=== PATIENT | male | born 1945 | race Caucasian/White ===

== ENCOUNTER 2017-05-21 12:31 | Day surgery (SDC) | payer OTHER, BC ==
[2017-05-21] MEDS ORDERED: BENZOCAINE UNIT DOSE SPRAY HURRICAINE MM ONE (12:35)
[2017-05-21] MEDS ORDERED: ATROPINE SULFATE 1 MG/10 ML SYR IVP ONE (12:35)
[2017-05-21] MEDS ORDERED: fentaNYL 100 MCG/2 ML INJ IVP ONE (12:35)
[2017-05-21] MEDS ORDERED: MIDAZOLAM 2 MG/2 ML VIAL IVP ONE (12:35)
[2017-05-21] MEDS ORDERED: NS 500 ML IV ONE (12:35)
--- NOTE | 2017-05-21 12:51 | CPEKG ---
Heart Rate: 93 RR Interval: 645 QRSD Interval: 92 QT Interval: 348 QTC Interval: 433 QRS [place]: 71 T Wave Holden: 36 EKG Severity - ABNORMAL ECG - EKG Impression: ATRIAL FIBRILLATION EKG Impression: LOW VOLTAGE IN FRONTAL LEADS Electronically Signed By: Wayne Newell 21-May-2017 15:51:23
--- NOTE | 2017-05-21 13:19 | PDANEPAE ---
ANE History of Present Illness 72 year old male w/ PMHx of Annika Montanez presents for ROB / CV. ANE Past Medical History - Cardiovascular History Hx Hypertension: Yes Hx Arrhythmias: Yes Hx Chest Pain: No Hx Coronary Artery / Peripheral Vascular Disease: No Hx CHF / Valvular Disease: No Hx Palpitations: Yes Cardiovascular History Comment: Atrial fibrillation - Pulmonary History Hx COPD: No Hx Asthma/Reactive Airway Disease: No Hx Recent Upper Respiratory Infection: No Hx Oxygen in Use at Home: No Hx Sleep Apnea: Yes - Neurologic History Hx Cerebrovascular Accident: No Hx Seizures: No Hx Dementia: No - Endocrine History Hx Diabetes: No Hypothyroid: No Hyperthyroid: No Obesity: no - Renal History Hx Renal Disorders: No - Liver History Hx Hepatic Disorders: No - Neurological & Psychiatric Hx Hx Neurological and Psychiatric Disorders: No - Cancer History Hx Cancer: No - Congenital Disorder History Hx Congenital Disorders: No - GI History Hx Gastrointestinal Disorders: No - Chronic Pain History Chronic Pain: Yes (Right hip s/p replacement and revision) ANE Review of Systems Review of systems is: negative Review of Systems: - Exercise capacity Exercise capacity: >=4 METS ANE Patient History - Allergies Allergies/Adverse Reactions: No Known Allergies Allergy (Unverified 08/17/11 10:55) - Home Medications Home medications: home medication list seen and reviewed Home Medications: Atorvastatin Calcium [Lipitor] 10 mg PO DAILY 08/17/11 [Last Taken 04/13/16 07: 00] Cholecalciferol (Vitamin D3) [Vitamin D] 1,000 unit PO DAILY 08/17/11 [Last Taken 04/13/16 07:00] Dabigatran Etexilate Mesyl [Pradaxa] 150 mg PO BID 08/17/11 [Last Taken 07:00] Diltiazem HCl [Diltiazem 24Hr ER] 120 mg PO DAILY 08/17/11 [Last Taken 04/13/16 07:00] Irbesartan [Avapro] 150 mg PO DAILY 08/17/11 [Last Taken 04/13/16 07:00] Multivitamin [Daily Multiple Vitamin] 1 each PO DAILY 08/17/11 [Last Taken 04/13 07:00] [place]-3 Fatty Acids/Fish Oil [Fish Oil 1,000 mg Softgel] 1,000 mg PO BID [Last Taken 04/13/16 07:00] - NPO status NPO Status: no food or drink >8 hours - Anes Hx Anes Hx: no prior problems - Smoking Hx Smoking Status: Never smoked Marijuana use: No - Alcohol Use Alcohol Use: Rarely - Family Anes Hx Family Anes Hx: neg - N/A ANE Labs/Vital Signs - Labs Result Diagrams: 05/21/17 13:05 - Vital Signs Vital Signs: reviewed preoperatively; see RN documention for details Height: 173 cm Weight: 63.5 kg ANE Physical Exam - Airway Neck exam: FROM Mallampati Score: Class 2 - Pulmonary Pulmonary: no respiratory distress - Cardiovascular Cardiovascular: regular rate and rhythym - ASA Status ASA Status: III ANE Anesthesia Plan Anesthesia Plan: GA with mask Total IV Anesthesia: Yes
[2017-05-21 13:25] LABS: INR 1.26 (0.83-1.16); PROTIME(PATIENT) 15.8 SEC (12.0-15.0)
[2017-05-21 13:26] LABS: APTT 33.2 SEC (23.0-38.0)
[2017-05-21 13:41] LABS: TROPONIN I < 0.012 ng/mL (0.000-0.034)
[2017-05-21] MEDS ORDERED: PROPOFOL 200 MG/20 ML VIAL ONE (13:43)
[2017-05-21 13:50] LABS: ANION GAP 11 mEq/L (8-16); CALCIUM 9.3 mg/dL (8.5-10.4); CARBON DIOXIDE 24 mEq/l (22-31); CHLORIDE 106 mEq/L (97-110); CREATININE 0.8 mg/dL (0.7-1.3); GLOMERULAR FILTRATION RATE > 60; GLUCOSE 84 mg/dL (70-100); MAGNESIUM 1.8 mg/dL (1.6-2.3); POTASSIUM 4.2 mEq/L (3.5-5.2); SODIUM 141 mEq/L (134-144)
[2017-05-21] MEDS ORDERED: PROPOFOL/EMULSION 500 MG/50 ML BOTTLE IV ONE (14:07)
--- NOTE | 2017-05-21 14:23 | PDHPUP ---
History & Physical Update H&P update statement: This history and physical update is based on an assessment of the patient which was completed after admission or registration (within 24 hours), but prior to the surgery/procedure. H&P update: H&P reviewed & patient examined, no change in patient's condition since H&P completed
--- NOTE | 2017-05-21 14:24 | PDPROPOC ---
Sedation Plan of Care Sedation Plan of Care: vital signs stable, mental status noted, patient educated of risks, benefits, alternatives, patient can tolerate sedation ASA Classification: ASA 2 Planned drugs: other Mallampati Score: Class 2 Mallampati Reference Image: Patient passed 3-3-2 rule?: Yes
--- NOTE | 2017-05-21 14:31 | CPEKG ---
Heart Rate: 65 RR Interval: 923 P-R Interval: 276 QRSD Interval: 88 QT Interval: 408 QTC Interval: 425 P Pitcher: -29 QRS Pitcher: 43 T Wave Pitcher: 39 EKG Severity - ABNORMAL ECG - EKG Impression: SINUS RHYTHM EKG Impression: MULTIPLE ATRIAL PREMATURE COMPLEXES EKG Impression: FIRST DEGREE AV BLOCK EKG Impression: LOW VOLTAGE IN FRONTAL LEADS Electronically Signed By: Wayne Newell 21-May-2017 15:51:01
--- NOTE | 2017-05-21 17:36 | POSTANESTH ---
Post Anesthetic Evaluation Cardiovascular Status: Normal, Stable, Similar to Pre-Op Cond Respiratory Status: Normal, Stable, Similar to Pre-op Cond. Level of Consciousness/Mental Status: Can Participate in Eval, Alert and Oriented Pain Control: Adequate, Prn Tx Ordered Nausea/Vomiting Control: Adequate, Prn Tx Ordered Complications Possibly Related to Anesthesia: None Noted
--- NOTE | 2017-05-21 21:49 | CPIP ---
[f rep st] INVASIVE CARDIAC PROCEDURE DATE OF PROCEDURE: 05/21/2017 PROCEDURE: Transesophageal echocardiogram cardioversion. INDICATION: Atrial fibrillation. CONSENT: Signed and in front of chart. ANTICOAGULATION: Patient has been anticoagulated with Eliquis. He did have to hold a few doses for a spinal injection. Therefore, ROB was performed. Please see ROB report for details. PROCEDURE IN DETAIL: ROB demonstrated no evidence of thrombus in the left atrium or the left atrial appendage. Specifics: Pads were placed in anterior-posterior position. 150 joules synchronized deli kemar x1 with return to normal sinus rhythm. COMPLICATIONS: None. CONCLUSIONS: Status post successful direct current cardioversion. /[id number]/MODL
== END 2017-05-21 15:52 | disposition home or self-care (01) ==
LOC: FCATH 12:31
PROVIDERS: ATTEND Internal Medicine Cardiovascular Disease
PROC: 5A2204Z Restoration of Cardiac Rhythm, Single (ICD-10-PCS; principal; 2017-05-21)
DX: I48.91 Unspecified atrial fibrillation (principal)
CPT/HCPCS: J0461; J2704

== ENCOUNTER 2017-09-01 13:07 | Day surgery (SDC) | payer OTHER, BC ==
[2017-09-01] MEDS ORDERED: NS 500 ML IV ONE (13:13)
--- NOTE | 2017-09-01 13:46 | CPEKG ---
Heart Rate: 98 RR Interval: 612 QRSD Interval: 96 QT Interval: 360 QTC Interval: 460 QRS [place]: 74 T Wave [place]: 44 EKG Severity - ABNORMAL ECG - EKG Impression: ATRIAL FIBRILLATION, V-RATE 77-129 Electronically Signed By: James Cerda 01-Sep-2017 17:27:46
[2017-09-01 13:47] LABS: INR 1.11 (0.83-1.16); PROTIME(PATIENT) 14.5 SEC (12.0-15.0)
--- NOTE | 2017-09-01 14:14 | PDANEPAE ---
ANE History of Present Illness A-fib ANE Past Medical History - Cardiovascular History Hx Hypertension: Yes Hx Arrhythmias: Yes Hx Chest Pain: No Hx Coronary Artery / Peripheral Vascular Disease: No Hx CHF / Valvular Disease: No Hx Palpitations: Yes Cardiovascular History Comment: Atrial fibrillation - Pulmonary History Hx COPD: No Hx Asthma/Reactive Airway Disease: No Hx Recent Upper Respiratory Infection: No Hx Oxygen in Use at Home: No Hx Sleep Apnea: Yes - Neurologic History Hx Cerebrovascular Accident: No Hx Seizures: No Hx Dementia: No - Endocrine History Hx Diabetes: No - Renal History Hx Renal Disorders: No - Liver History Hx Hepatic Disorders: No - Neurological & Psychiatric Hx Hx Neurological and Psychiatric Disorders: No - Cancer History Hx Cancer: No - Congenital Disorder History Hx Congenital Disorders: No - GI History Hx Gastrointestinal Disorders: No - Chronic Pain History Chronic Pain: Yes (Right hip s/p replacement and revision) ANE Review of Systems Review of Systems: ANE Patient History - Allergies Allergies/Adverse Reactions: No Known Allergies Allergy (Unverified 08/17/11 10:55) - Home Medications Home Medications: Atorvastatin Calcium [Lipitor 10 mg (*)] 10 mg PO DAILY 08/17/11 [Last Taken 09/24 07:00] Cholecalciferol (Vitamin D3) [Vitamin D] 1,000 unit PO DAILY 08/17/11 [Last Taken 04/13/16 07:00] Diltiazem HCl [Diltiazem 24Hr ER] 120 mg PO DAILY 08/17/11 [Last Taken 04/13/16 07:00] Irbesartan [Avapro 150 mg (*)] 150 mg PO DAILY 08/17/11 [Last Taken 04/13/16 07: 00] Multivitamin [Daily Multiple Vitamin] 1 each PO DAILY 08/17/11 [Last Taken 04/13 07:00] [place]-3 Fatty Acids/Fish Oil [Fish Oil 1,000 mg Softgel] 1,000 mg PO BID [Last Taken 04/13/16 07:00] Eliquis 5 mg PO BID 05/21/17 [Last Taken 05/21/17 07:00] Propafenone HCl 05/21/17 [Last Taken Unknown] - Anes Hx Anes Hx: no prior problems - Smoking Hx Smoking Status: Never smoked ANE Labs/Vital Signs - Labs Result Diagrams: 02/21/18 13:30 ANE Physical Exam - Airway Neck exam: FROM Mallampati Score: Class 2 Mouth exam: normal dental/mouth exam - Pulmonary Pulmonary: no respiratory distress - Cardiovascular Cardiovascular: regular rate and rhythym - ASA Status ASA Status: II ANE Anesthesia Plan Anesthesia Plan: GA with mask (Brief IV GA)
[2017-09-01] MEDS ORDERED: PROPOFOL 200 MG/20 ML VIAL ONE (14:18)
[2017-09-01] MEDS ORDERED: LIDOCAINE 2% 5 ML SDV ONE (14:19)
--- NOTE | 2017-09-01 14:50 | CPEKG ---
Heart Rate: 63 RR Interval: 952 P-R Interval: 244 QRSD Interval: 82 QT Interval: 408 QTC Interval: 418 P [place]: 11 QRS [place]: 50 T Wave [place]: 42 EKG Severity - ABNORMAL ECG - EKG Impression: SINUS RHYTHM EKG Impression: FIRST DEGREE AV BLOCK Electronically Signed By: James Cerda 01-Sep-2017 17:27:39
--- NOTE | 2017-09-01 14:55 | CPIP ---
[f rep st] INVASIVE CARDIAC PROCEDURE DATE OF PROCEDURE: 09/01/2017 PRIMARY HOME WEATHERIZING WORKER: Dr. Parth Nur. PROCEDURE: Direct current cardioversion. INDICATIONS: Symptomatic atrial fibrillation. COMPLICATIONS: None. DESCRIPTION OF PROCEDURE: NPO status was confirmed, time-out performed, informed consent obtained, a nd time-out was performed. Anesthesia was provided by Dr. Houser. The patient has been taking Eliquis as directed twice daily without fail for greater than 4 weeks. Therefore, we did not perfor m a ROB. The patient received a single 200 joule synchronized shock which converted him from atrial fibrillati on to normal sinus rhythm. A 12-lead EKG is pending. CONCLUSION: Successful cardioversion. 1. Discharge home on his usual propafenone, beta jorge, Eliquis. 2. Follow up with Dr. Chucky Mejia for further management of atrial fibrillation. /[id number]/MODL
== END 2017-09-01 15:47 | disposition home or self-care (01) ==
LOC: FCATH 13:07
PROVIDERS: ATTEND Internal Medicine Cardiovascular Disease
PROC: 5A2204Z Restoration of Cardiac Rhythm, Single (ICD-10-PCS; principal; 2017-09-01)
DX: I48.0 Paroxysmal atrial fibrillation (principal); I48.92 Unspecified atrial flutter; I25.10 Atherosclerotic heart disease of native coronary artery without angina pectoris; I10 Essential (primary) hypertension; E78.5 Hyperlipidemia, unspecified; G47.33 Obstructive sleep apnea (adult) (pediatric); Z79.01 Long term (current) use of anticoagulants; Z86.711 Personal history of pulmonary embolism; Z86.718 Personal history of other venous thrombosis and embolism
CPT/HCPCS: J2704

== ENCOUNTER → 2018-04-04 | Outpatient (CLI) | payer OTHER, BC | LOC: BHFA 13:00 | PROVIDERS: ATTEND Internal Medicine Cardiovascular Disease | DX: I48.91 Unspecified atrial fibrillation (principal); Z79.899 Other long term (current) drug therapy ==

== ENCOUNTER 2018-08-05 12:15 | Day surgery (SDC) | payer OTHER ==
[2018-08-05] MEDS ORDERED: NS 500 ML IV ONE (12:17)
[2018-08-05] MEDS ORDERED: MIDAZOLAM 2 MG/2 ML VIAL IVP ONE (12:17)
[2018-08-05] MEDS ORDERED: BENZOCAINE UNIT DOSE SPRAY HURRICAINE MM ONE (12:17)
[2018-08-05] MEDS ORDERED: ATROPINE SULFATE 1 MG/10 ML SYR IVP ONE (12:17)
[2018-08-05] MEDS ORDERED: fentaNYL 100 MCG/2 ML INJ IVP ONE (12:17)
[2018-08-05 12:56] LABS: INR 1.19 (0.83-1.16); PROTIME(PATIENT) 15.3 SEC (12.0-15.0)
--- NOTE | 2018-08-05 13:33 | PDANEPAE ---
ANE History of Present Illness afib, here for ROB and cardioversion in attempt to regain NSR ANE Past Medical History - Cardiovascular History Hx Hypertension: Yes Hx Arrhythmias: Yes Hx Chest Pain: No Hx Coronary Artery / Peripheral Vascular Disease: No Hx CHF / Valvular Disease: No Hx Palpitations: Yes Cardiovascular History Comment: Atrial fibrillation - Pulmonary History Hx COPD: No Hx Asthma/Reactive Airway Disease: No Hx Recent Upper Respiratory Infection: No Hx Oxygen in Use at Home: No Hx Sleep Apnea: Yes - Neurologic History Hx Cerebrovascular Accident: No Hx Seizures: No Hx Dementia: No - Endocrine History Hx Diabetes: No - Renal History Hx Renal Disorders: No - Liver History Hx Hepatic Disorders: No - Neurological & Psychiatric Hx Hx Neurological and Psychiatric Disorders: No - Cancer History Hx Cancer: No - Congenital Disorder History Hx Congenital Disorders: No - GI History Hx Gastrointestinal Disorders: No - Chronic Pain History Chronic Pain: Yes (Right hip s/p replacement and revision) ANE Review of Systems Review of Systems: ANE Patient History - Allergies Allergies/Adverse Reactions: No Known Allergies Allergy (Unverified 08/17/11 10:55) - Home Medications Home Medications: Atorvastatin Calcium [Lipitor 10 mg (*)] 10 mg PO DAILY 08/17/11 [Last Taken 06:00] Cholecalciferol (Vitamin D3) [Vitamin D] 1,000 unit PO DAILY 08/17/11 [Last Taken 04/13/16 07:00] Diltiazem HCl [Diltiazem 24Hr ER] 120 mg PO DAILY 08/17/11 [Last Taken 08/05/18 06:00] Irbesartan [Avapro 150 mg (*)] 150 mg PO DAILY 08/17/11 [Last Taken 08/05/18 06: 00] Multivitamin [Daily Multiple Vitamin] 1 each PO DAILY 08/17/11 [Last Taken 04/13 07:00] [place]-3 Fatty Acids/Fish Oil [Fish Oil 1,000 mg Softgel] 1,000 mg PO BID [Last Taken 04/13/16 07:00] Eliquis 5 mg PO BID 05/21/17 [Last Taken 08/05/18 06:00] Propafenone HCl 325 mg PO DAILY 05/21/17 [Last Taken 08/05/18 06:00] Co Q-10 08/05/18 [Last Taken Unknown] ZOLPIDEM TARTRATE 10 mg PO PRN 08/05/18 [Last Taken Unknown] - Smoking Hx Smoking Status: Never smoked ANE Labs/Vital Signs - Labs Result Diagrams: 08/05/18 12:30 - Vital Signs Height: 173 cm Weight: 63.5 kg ANE Physical Exam - Airway Neck exam: FROM Mallampati Score: Class 1 Mouth exam: normal dental/mouth exam - Pulmonary Pulmonary: no respiratory distress, no rales or rhonchi - Cardiovascular Cardiovascular: irregularly irregular - ASA Status ASA Status: III ANE Anesthesia Plan Anesthesia Plan: GA with mask Total IV Anesthesia: Yes
[2018-08-05] MEDS ORDERED: PROPOFOL 200 MG/20 ML VIAL ONE ×2 (13:46→13:53)
--- NOTE | 2018-08-05 13:57 | PDTEE1 ---
ROB Cardioversion Procedure Procedure: electrical cardioversion Indications: atrial fibrillation Consent: signed and in chart Anticoagulation: eliquis Procedural Details: Pads were placed in anterior-posterior position. ROB probe was advanced and standard images obtained. There is no evidence of left atrial or left atrial appendage thrombus. Synchronized cardioversion attempt #1: 200J Results: normal sinus rhythm Conclusions: successful ROB cardioversion
--- NOTE | 2018-08-05 14:03 | POSTANESTH ---
Post Anesthetic Evaluation Cardiovascular Status: Normal, Stable Respiratory Status: Normal, Stable Level of Consciousness/Mental Status: Can Participate in Eval, Alert and Oriented Pain Control: Adequate, Prn Tx Ordered Nausea/Vomiting Control: Adequate, Prn Tx Ordered Complications Possibly Related to Anesthesia: None Noted
--- NOTE | 2018-08-05 16:25 | ECHO ---
[email or web address] [place] [id number] Main: [phone] Fax: Transesophageal Echocardiography Name: JUDY CARABALLO MR#: [id number] Study Date: 08/05/2018 Study Time: 01:20 PM Date of : 1945 Age: 73 year(s) Height: ( ) Weight: ( ) BSA: Gender: Male Examination: ROB Indication: Pre Cardioversion Image Quality: Contrast: Requested by: Cullen Nieto Heart Rate: Rhythm: BP: / Procedure Staff Ic Engineer: Tyesha Meadows RDCS Reading Physician: Cullen Nieto MD Requesting Provider: ROB Exam Details Conclusions: The patient was in atrial fibrillation at the time of the study. Left atrial appendage was well visualized and free of thrombus. The patient underwent cardioversion following the procedure. Measurements: Chambers Valvular Assessment AV/MV Valvular Assessment TV/PV Normal Normal Normal Name Value Range Name Value Range Name Value Range Additional Measurements: Findings: Left Atrial Appendage: The left atrial appendage is multilobular. Good color flow doppler in the left atrial appendage. Normal PW-Doppler flow pattern. No thrombus in left appendage. l1n (No Signature Object) Patient: JUDY CARABALLO Study Date: 08/05/2018 Page 1 of 1 01:20 PM [id number]
--- NOTE | 2018-08-05 20:55 | CPEKG ---
Test Reason : OPEN Blood Pressure : / mmHG Vent. Rate : 116 BPM Atrial Rate : 208 BPM P-R Int : 130 ms QRS Dur : 094 ms QT Int : 333 ms P-R-T Axes : 000 082 037 degrees QTc Int : 463 ms Atrial fibrillation Borderline right axis deviation Compared with 09/01/2017 at 14:48, AF now present Confirmed by Kalyani Ruffin ([id number]) on 08/05/2018 8:55:24 PM Referred By: Cullen Nieto Confirmed By:Kalyani Ruffin
--- NOTE | 2018-08-05 20:56 | CPEKG ---
Test Reason : OPEN Blood Pressure : / mmHG Vent. Rate : 076 BPM Atrial Rate : 077 BPM P-R Int : 272 ms QRS Dur : 092 ms QT Int : 378 ms P-R-T Axes : -29 051 040 degrees QTc Int : 426 ms Sinus rhythm Prolonged MI interval Low voltage, extremity leads Compared with 08/05/2018 at 12:26 NSR now present Confirmed by Kalyani Ruffin ([id number]) on 08/05/2018 8:56:36 PM Referred By: Cullen Nieto Confirmed By:Kalyani Ruffin
== END 2018-08-05 15:00 | disposition home or self-care (01) ==
LOC: FCATH 12:15
PROVIDERS: ATTEND Internal Medicine Cardiovascular Disease
DX: I48.91 Unspecified atrial fibrillation (principal); I10 Essential (primary) hypertension; E78.5 Hyperlipidemia, unspecified; G47.33 Obstructive sleep apnea (adult) (pediatric); I25.10 Atherosclerotic heart disease of native coronary artery without angina pectoris; Z79.01 Long term (current) use of anticoagulants; Z86.718 Personal history of other venous thrombosis and embolism; Z86.711 Personal history of pulmonary embolism; Z96.641 Presence of right artificial hip joint
CPT/HCPCS: J2704

== ENCOUNTER 2018-10-05 11:04 | Observation (INO) | payer OTHER ==
[2018-10-05] MEDS ORDERED: NS 1,000 ML IV ONE (11:09)
--- NOTE | 2018-10-05 11:23 | PDGENHP ---
History & Physical Chief Complaint: afib History of Present Illness: symptomatic pAF, presenting for catheter ablation Relevant Physical Exam: A+Ox4, irr irr/mildly tachy, no MRG, CTAB, no focal neuro deficits. Cardiorespiratory Assessment: pAF -> catheter ablation
[2018-10-05] MEDS ORDERED: HEPARIN/DEXTROSE 25,000 UNIT/500 ML BAG ONE (11:35)
[2018-10-05] MEDS ORDERED: LIDOCAINE 1% 300 MG/30 ML SDV ONE (11:35)
[2018-10-05] MEDS ORDERED: BUPIVACAINE 0.75% 10 ML SDV ONE (11:36)
[2018-10-05] MEDS ORDERED: HEPARIN 10,000 UNIT/10 ML MDV (1,000 UNIT/ML) ONE (11:36)
[2018-10-05] MEDS ORDERED: IOPAMIDOL (ISOVUE-300) 100 ML BTL ONE (11:36)
[2018-10-05 11:52] LABS: PLATELET COUNT 198 10^3/uL (150-400)
[2018-10-05 12:00] LABS: INR 0.97 (0.83-1.16); PROTIME(PATIENT) 12.5 SEC (12.0-15.0)
[2018-10-05] MEDS ORDERED: PROPOFOL 200 MG/20 ML VIAL ONE ×2 (12:47→14:29)
[2018-10-05] MEDS ORDERED: fentaNYL 100 MCG/2 ML INJ ONE ×5 (12:47→15:51)
[2018-10-05] MEDS ORDERED: PROTAMINE SULFATE 50 MG/5 ML VIAL IVP ONE (16:08)
[2018-10-05] MEDS ORDERED: ACETAMINOPHEN 325 MG TAB PO PRN (16:33)
[2018-10-05] MEDS ORDERED: PROMETHAZINE HCL 25 MG/ML INJ IVP PRN (16:47)
[2018-10-05] MEDS ORDERED: fentaNYL 100 MCG/2 ML INJ IVP PRN (16:47)
[2018-10-05] MEDS ORDERED: ONDANSETRON 4 MG/2 ML VIAL IVP PRN (16:47)
[2018-10-05] MEDS ORDERED: NALOXONE HCL 0.4 MG/ML INJ IVP PRN (16:47)
--- NOTE | 2018-10-05 16:48 | POSTANESTH ---
Post Anesthetic Evaluation Cardiovascular Status: Normal, Stable Respiratory Status: Normal, Stable Level of Consciousness/Mental Status: Can Participate in Eval Pain Control: Adequate, Prn Tx Ordered Nausea/Vomiting Control: Adequate, Prn Tx Ordered Complications Possibly Related to Anesthesia: None Noted
--- NOTE | 2018-10-05 16:49 | EPPROC ---
Electrophysiology Procedure Note: Date: 10/06/2018 Decorating Equipment Setter: Christopher Delatorre MD Procedures: Comprehensive EP study/catheter ablation of atrial fibrillation 49629 Intracardiac ECHO 95347 3D electroanatomic mapping 28837 Transesophageal echocardiography [id number] Indications: 73-year-old male with symptomatic paroxysmal atrial fibrillation, refractory to treatment with propafenone. Techniques: Following informed consent, the patient was brought to the EP lab in a fasting nonsedated state, in atrial fibrillation rhythm. General anesthesia was provided by the anesthesiology service. Preprocedure transesophageal echocardiogram confirmed the absence of left atrial appendage thrombus; see full report for details. He a left radial arterial line was inserted, and an esophageal temperature probe was inserted. Bilateral groins were prepped and draped in usual sterile fashion. Under ultrasound guidance, vascular access was obtained in the right femoral vein x3, with placement of 2 8 [place] short sheaths, and 1 SL 0 long sheath, which was later exchanged for the FlexCath transseptal sheath. Weight based heparin bolus and drip was administered, targeting ACT 300-350 seconds. A Sound Star ice catheter was inserted, and advanced to right atrium. A Carto sound map was created of the CS ostium, left atrial appendage, pulmonary veins ( which showed normal anatomic relationship), and esophagus. A decapolar catheter was inserted, and advanced to the coronary sinus. A [place] transseptal needle was inserted in the SL 0 sheath, and the system was positioned at the anterior/inferior aspect of the fossa ovalis, under ice guidance. The fossa was crossed, and the sheath was positioned in the mid LA. A PentaRay multipolar catheter was inserted, and used to create a Carto anatomic map of the left atrium, left atrial appendage, pulmonary veins. The PentaRay was removed, and the SL 0 was exchanged over a wire for the FlexCath transseptal sheath. An [place] front Advance cryo balloon catheter was prepped in usual fashion over an achieve circular mapping catheter. The system was used to engage the LSPV/LIPV/RIPV/RSPV. Engagement was guided by Carto and ice , and venous occlusion was confirmed using color Doppler by ice, and catheter tip pressure waveforms. During RIPV/RSPV ablation, right phrenic nerve pacing was performed using a decapolar catheter, with monitoring of right phrenic nerve activity by manual palpation and ice. Following cryoablation of all 4 pulmonary veins, due to ongoing atrial fibrillation rhythm, the patient was cardioverted to atrial paced rhythm (via the CS catheter), using a single 200 joule biphasic R-wave synchronized shock. The cryo balloon catheter was removed , and the PentaRay was reinserted. A substrate map of the LA, LA, PVs was repeated. Entrance and exit block was confirmed in all 4 pulmonary veins via local activation mapping, and pacing from within each vein. All equipment was then withdrawn from the left atrium. At the completion of the procedure, ice survey showed no pericardial effusion; there was normal biventricular systolic function. All catheters were removed. A temporary hemostasis suture was applied to the right groin access site, and sheaths were removed; manual pressure was held until hemostasis. The patient tolerated the procedure well. EBL: 50 cc Complications: None Plan: Bedrest 6 hr postprocedure Resume Eliquis 5 mg twice daily at the completion of bedrest Pantoprazole and colchicine for 2 weeks post ablation Resume propafenone for 3 months post ablation Groin precautions 10 days post ablation Echo in a.m.
--- NOTE | 2018-10-05 18:10 | ECHO ---
[email or web address] [place] [id number] Main: [phone] Echocardiography Examination Transesophageal Name: JUDY CARABALLO MR#: [id number] Study Date: 10/05/2018 Study Time: 12:59 PM Date of : 1945 Age: 73 year(s) Height: ( ) Weight: ( ) BSA: Gender: Male Examination: ROB Contrast: I.V. dose of agitated saline Image Quality: Adequate Rhythm: Heart Rate: BP: / Indication: pre-ablation Procedure Staff Referring Physician: Manufacturing Job Titles: Ginette Edwards [facility] Reading Physician: Brent Delatorre MD Requesting Provider: Ordering Physician: Brent Delatorre MD Indication: pre-ablation Acute complication: None Findings Left Ventricle: Left ventricle is normal in size. Normal global systolic left ventricular function. Left Atrium Appendage: The left atrial appendage function is mildly reduced (mildly reduced emptying velocity). Moderate color flow doppler in the left atrial appendage. No mass is present. IAS: An agitated saline study was performed and was negative for intracardiac shunting. No evidence of a patent foramen ovale. Mitral Valve: Mitral valve appears structurally normal. No mitral regurgitation. Aortic Valve: The aortic valve is structurally normal and trileaflet. No aortic valve regurgitation. Tricuspid Valve: Tricuspid valve leaflets are structurally normal. Trivial tricuspid regurgitation. Pericardium: No pericardial effusion. Exam Details Procedure Ordered: ROB Procedure Status: Routine study Image Quality: Adequate Patient: JUDY CARABALLO Study Date: 10/05/2018 Page 1 of 2 12:59 PM Consent: Risks, alternatives of procedure explained to patient, informed consent obtained Probe Insertion: Attending fish hatchery worker Contrast: I.V. dose of agitated saline Facility Location: Cardiac Echo 1 (No Signature Object) Patient: JUDY CARABALLO Study Date: 10/05/2018 Page 2 of 2 12:59 PM [id number]
[2018-10-05] MEDS: OXYCODONE/APAP 5/325 TAB PO PRN ×2 (18:59→23:31)
[2018-10-05] MEDS: COLCHICINE 0.6 MG CAP/TAB PO SCH (22:13)
[2018-10-05] MEDS: PROPAFENONE HCL SR 325 MG CAP PO SCH (22:14)
[2018-10-05] MEDS: APIXABAN 5 MG TAB PO SCH (22:14)
[2018-10-06 05:41] LABS: PLATELET COUNT 161 10^3/uL (150-400)
[2018-10-06 05:57] LABS: CREATINE KINASE 199 IU/L (0-224)
[2018-10-06] MEDS: APIXABAN 5 MG TAB PO SCH (08:25)
[2018-10-06] MEDS: PROPAFENONE HCL SR 325 MG CAP PO SCH (08:27)
[2018-10-06] MEDS: PANTOPRAZOLE SODIUM 40 MG TAB PO SCH ×2 (08:34→11:15)
[2018-10-06] MEDS: COLCHICINE 0.6 MG CAP/TAB PO SCH ×2 (08:34→11:09)
[2018-10-06] MEDS ORDERED: DILTIAZEM CD 120 MG CAP PO SCH (09:00)
[2018-10-06] MEDS ORDERED: ATORVASTATIN CALCIUM 10 MG TAB PO SCH (09:00)
[2018-10-06] MEDS ORDERED: IRBESARTAN 150 MG TAB PO SCH (09:00)
[2018-10-06 10:11] VITALS: BP 122/70
--- NOTE | 2018-10-06 11:20 | CPEKG ---
Test Reason : OPEN Blood Pressure : / mmHG Vent. Rate : 135 BPM Atrial Rate : 136 BPM P-R Int : 100 ms QRS Dur : 082 ms QT Int : 298 ms P-R-T Axes : 000 066 055 degrees QTc Int : 447 ms Atrial fibrillation Low voltage, extremity leads Atrial fibrillation has replaced normal sinus rhythm noted on prior Confirmed by Mason Echavarria ([id number]) on 10/06/2018 11:19:50 AM Referred By: Brent Delatorre Confirmed By:Mason Echavarria
--- NOTE | 2018-10-06 11:20 | ECHO ---
[email or web address] [address] Main: [phone] Echocardiography Examination Transthoracic Name: JUDY CARABALLO MR#: [id number] Study Date: 10/06/2018 Study Time: 07:25 AM Date of : 1945 Age: 73 year(s) Height: 172.7 cm (68 in.) Weight: 63.5 kg (140 lb.) BSA: 1.76 m2 Gender: Male Examination: Echo Contrast: Image Quality: Adequate Rhythm: Heart Rate: BP: 133 mmHg/113 mmHg Indication: F/U Post EP Study Procedure Staff Referring Physician: Work Force Advisor: Tyesha Meadows [facility] Reading Physician: Akbar Hall MD Requesting Provider: Ordering Physician: Brent Delatorre MD Indication: F/U Post EP Study Measurements Chambers AV/MV Label Value Normal Value Label Value Normal Value IVSd, 2D 1.5 cm (0.6cm - 1.1cm) AV PGmax 7 mmHg LVDd, 2D 4 cm (4.2cm - 5.9cm) AV PGmean 5 mmHg LVDs, 2D 2.5 cm (2.1cm - 4cm) AV Vmax 1.36 m/s LVEF, 2D 68 % (54% - 74%) MV A Vmax 0.72 m/s LVEF, BP 63 % (55% - 70%) MV DT 243 ms LVOT PGmean 5 mmHg MV E' lateral 0.11 m/s LVOT Vmean 1.04 m/s MV E' mean 0.08 m/s LVPWd, 2D 1.3 cm (0.6cm - 1cm) MV E' septal 0.06 m/s RVDd, 2D 3.5 cm (1.9cm - 3.8cm) MV E Vmax 0.88 m/s LA Volume, BP 80 ml (18ml - 58ml) MV E/A 1.22 LADs, 2D 3.7 cm (3cm - 4cm) MV E/E' lateral 8.2 LAESV index, BP 45.5 ml/m2 MV E/E' mean 10.35 Additional Vessels MV E/E' septal 14.1 (0.45 - 1.25) Label Value Normal Value MV PHT 0.07 s AoAsc 3.6 cm MV PHT 67 ms AoRoot, 2D 3.5 cm (1.4cm - 2.6cm) MVA PHT 3.3 cm2 IVC 1.1 cm (1.2cm - 2.3cm) TV/PV Label Value Normal Value RA Pressure 5 mmHg Patient: JUDY CARABALLO Study Date: 10/06/2018 Page 1 of 2 07:25 AM RVSP 44 mmHg TR Pmax 39 mmHg TR Vmax 3.14 m/s PV PGmax 3 mmHg PV Vmax, Caliper 0.88 m/s (0.6m/s - 0.9m/s) Conclusions Overall Conclusions: No pericardial effusion. Ejection fraction 63%. Mild mitral regurgitation. Mild aortic regurgitation. Mild tricuspid regurgitation with right ventricular systolic pressure estimate of 44 mm of mercury. Ascending aorta measures 3.6 cm. Findings Left Ventricle: Normal global systolic left ventricular function. The ejection fraction, measured by Simpsons method, is 63 %. There is moderate concentric left ventricular hypertrophy. There are no regional wall motion abnormalities. Grade II Diastolic Dysfunction. Right Ventricle: Normal size right ventricle. Right ventricular systolic function is normal. Left Atrium: The left atrium is moderately dilated. Mitral Valve: Mitral valve appears structurally normal. Mild mitral regurgitation. No mitral valve stenosis. Aortic Valve: Aortic leaflets are structurally normal. Mild aortic regurgitation is present. There is no aortic stenosis. Tricuspid Valve: Tricuspid valve leaflets are structurally normal. Mild tricuspid regurgitation. No tricuspid valve stenosis. Right Ventricular systolic pressure is measured at 44 mmHg. Pulmonary artery pressure is mildly increased. Pulmonic Valve: Pulmonic leaflets are structurally normal. Mild pulmonic valve regurgitation is present. Aorta: The aortic root size in 2D measures 3.5 cm. The ascending aorta measures 3.6 cm. Aorta Measurements AoRoot, 2D is 3.5 cm. IVC: The inferior vena cava is normal in size. Exam Details Procedure Ordered: Echo Procedure Status: Routine study Image Quality: Adequate Facility Location: Cardiac Echo 1 (No Signature Object) Patient: JUDY CARABALLO Study Date: 10/06/2018 Page 2 of 2 07:25 AM [id number]
--- NOTE | 2018-10-06 11:22 | ASMTDCNOTE ---
Case Management Discharge Discharge Order Complete? Answers: Yes Patient to Obtain Answers: via Family Medications Transportation Arranged Answers: Family/Friends Discharge Comments Notes: Pt is a 73 yo M in with Afib Ablation. Pt is being discharged independently. No CM needs identified. Family to transport. Discussed plan with RN. Date Signed: 10/06/2018 11:22 AM Electronically Signed By:CHERIE Dawson
--- NOTE | 2018-10-06 11:25 | ASDISCHSUM ---
Discharge Information Plan Status:Home with No Needs Medically Cleared to Leave:10/06/2018 Discharge Date:10/06/2018 CM D/C Disposition:Home, Routine, Self-Care ADT D/C Disposition:Home, Routine, Self-Care Projected Discharge Date:10/06/2018 Transportation at D/C:Family Discharge Delay Reason: Follow-Up Date:10/06/2018 Discharge Slot: Final Diagnosis: Placement Information Patient Contact Information Contact Name:GENNARO Relationship: Address:[address] City:[facility] Phone: [facility]/Zip Code:[place] [address] Email: Financial Information Financial Class:Medicare Advantage Plans Primary Plan Desc:[employer] MEDICARE ADV Primary Plan Number:[id number] Secondary Plan Desc: Secondary Plan Number: Assessment Information LACE LACE Length of stay for Answers: Less than 1 day current admission Acuity / Level of Answers: No Care: Did the patient have an inpatient admission? Comorbidities - select Answers: Opioid dependence all that apply / Chronic pain Other Notes: AFib; PE # of Emergency department Answers: 0 visits in the last 6 months Score: 5 Date Signed: 10/06/2018 11:24 AM Electronically Signed By:CHERIE Dawson Case Management Discharge Plan Note Case Management Discharge Discharge Order Complete? Answers: Yes Patient to Obtain Answers: via Family Medications Transportation Arranged Answers: Family/Friends Discharge Comments Notes: Pt is a 73 yo M in with Afib Ablation. Pt is being discharged independently. No CM needs identified. Family to transport. Discussed plan with RN. Date Signed: 10/06/2018 11:22 AM Electronically Signed By:CHEREI Dawson Intervention Information
--- NOTE | 2018-10-06 11:36 | CPEKG ---
Test Reason : OPEN Blood Pressure : / mmHG Vent. Rate : 078 BPM Atrial Rate : 077 BPM P-R Int : 223 ms QRS Dur : 086 ms QT Int : 362 ms P-R-T Axes : 015 050 044 degrees QTc Int : 413 ms Sinus arrhythmia Prolonged SD interval Sinus rhythm has replaced atrial fibrillation on prior Confirmed by Mason Echavarria ([id number]) on 10/06/2018 11:35:38 AM Referred By: Brent Delatorre Confirmed By:Mason Echavarria
--- NOTE | 2018-10-06 12:14 | GDS ---
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 DISCHARGE DIAGNOSIS: Atrial fibrillation, status post cryoballoon pulmonary vein isolation. PROCEDURES PERFORMED DURING HOSPITALIZATION: 1. Electrocardiogram. 2. Echocardiogram. 3. Electrophysiology study. 4. Cryoballoon pulmonary vein isolation for paroxysmal atrial fibrillation. HOSPITAL COURSE: Patient presented 10/05/2018 for atrial fibrillation ablation in the setting of increasingly frequent and symptomatic episodes of paroxysmal atrial fibrillation with failure of treatment with propafenone. Patient underwent successful cryoballoon pulmonary vein isolation with Dr. Christopher Delatorre without any intraprocedure complications. He has done very well in the postprocedure setting and has been ambulating around his room this morning without issue. He is appropriate and stable for discharge home today. PHYSICAL EXAMINATION: GENERAL: Alert and oriented x4, in no apparent distress. VITAL SIGNS: Blood pressure 122/70, heart rate 80, respiratory rate 19, SpO2 94% on room air. Temp is 36.7 degrees Celsius. RESPIRATORY: Lungs are clear to auscultation without adventitious breath sounds. CARDIAC: Normal S1 and S2. No S3, S4. Rhythm is regular. ABDOMEN: Normoactive bowel sounds times all 4 quadrants. No masses or tenderness. Soft to palpation. SKIN: [place], warm, dry, without cyanosis, clubbing, or peripheral edema. EXTREMITIES: Right groin suture removed intact without evidence of hematoma, redness, oozing, swelling, or warmth. Pulses are 2+ bilaterally. No edema. LABORATORY STUDIES DRAWN TODAY: CBC and BMP are relatively stable compared to preprocedure. CK-MB fraction 25.5, troponin 5.1. Please note that elevated CK- MB and troponin are to be expected in the postprocedure setting. PROCEDURES PERFORMED DURING HOSPITALIZATION: Electrophysiology study and atrial fibrillation ablation, as mentioned above. Echocardiogram this morning demonstrates normal systolic function with LVEF 63%, mild MR, mild AI, mild TR, RVSP 44 mmHg, and ascending aorta measuring 3.6 cm. No evidence of pericardial effusion or new wall-motion abnormalities. Electrocardiogram this morning demonstrates normal sinus rhythm without new ST or T-wave abnormalities. DISCHARGE DISPOSITION: Patient will be discharged home in stable condition. He is under activity restrictions as below. DISCHARGE MEDICATIONS: Please see discharge medication reconciliation sheet for full details. Please note, the patient was restarted on his Eliquis 6 hours post procedure and he will not miss any doses of this medication for the 1st 3 months following his ablation without prior approval from the EP service. He will continue omeprazole for GI prophylaxis for 6 weeks. He will continue colchicine for 2 weeks post procedure for pericarditis prevention. He will also continue his propafenone as directed. DISCHARGE INSTRUCTIONS: Post atrial fibrillation ablation instructions reviewed with the patient in detail. 1. We discussed activity restrictions including lifting no more than 10 pounds and avoidance of submerged bathing for 10 days. 2. He will get up and walk around every 45 minutes for 45 days. 3. He will avoid unpressurized air travel or scuba diving for the next 6 months , and he will present to our clinic for an echocardiogram prior to engaging in either of these activities. 4. We also reviewed bleeding precautions, medication compliance, monitoring for signs and symptoms of infection, and monitoring for atrioesophageal fistula. At the time of discharge, patient verbalized understanding regarding all discharge instructions without questions or concerns. He will follow up with Dr. Delatorre in 4 weeks, and he will contact our clinic with any new or concerning symptoms prior to his upcoming visit. TIME SPENT ON DISCHARGE: Greater than 30 minutes. ADDENDUM Christopher Delatorre MD - Agree with the assessment and plan documented by Ms Altamirano. Doing well sp AF cryoablation. Post procedure instructions as above. /[id number]/MODL MTDD
== END 2018-10-06 11:30 | disposition home or self-care (01) ==
LOC: FCATH 11:04 → F2N 16:33
PROVIDERS: ADMIT Internal Medicine Cardiovascular Disease; ATTEND Internal Medicine Cardiovascular Disease
PROC: B245ZZ4 Ultrasonography of Left Heart, Transesophageal (ICD-10-PCS; principal; 2018-10-05)
PROC: 025T3ZZ Destruction of Left Pulmonary Vein, Percutaneous Approach (ICD-10-PCS; principal; 2018-10-05)
PROC: 025S3ZZ Destruction of Right Pulmonary Vein, Percutaneous Approach (ICD-10-PCS; principal; 2018-10-05)
PROC: 02K83ZZ Map Conduction Mechanism, Percutaneous Approach (ICD-10-PCS; principal; 2018-10-05)
DX: I48.0 Paroxysmal atrial fibrillation (principal); I10 Essential (primary) hypertension; I25.10 Atherosclerotic heart disease of native coronary artery without angina pectoris; E78.5 Hyperlipidemia, unspecified; G47.33 Obstructive sleep apnea (adult) (pediatric); I44.0 Atrioventricular block, first degree; Z79.01 Long term (current) use of anticoagulants; Z86.711 Personal history of pulmonary embolism; Z86.718 Personal history of other venous thrombosis and embolism
CPT/HCPCS: 92960; 93005; 93306; 93312; 93613; 93656; 93662; C1730; C1732; C1733; C1759; C1766; C1893; G0378; J1644; J2704; J2720; J3010; Q9967

== ENCOUNTER 2018-11-23 13:27 | Day surgery (SDC) | payer OTHER ==
[2018-11-23] MEDS ORDERED: NS 500 ML IV ONE (13:31)
[2018-11-23] MEDS ORDERED: ATROPINE SULFATE 1 MG/10 ML SYR IVP ONE (13:31)
[2018-11-23] MEDS ORDERED: fentaNYL 100 MCG/2 ML INJ IVP ONE (13:31)
[2018-11-23] MEDS ORDERED: MIDAZOLAM 2 MG/2 ML VIAL IVP ONE (13:31)
--- NOTE | 2018-11-23 14:06 | PDGENHP ---
History & Physical Chief Complaint: persistent AF History of Present Illness: persistent AF, recent cryoballoon ablation, early recurrence. Uninterrupted eliquis since ablation. Relevant Physical Exam: A+Ox4, irr irr/moderately tachycardic, no MRG, CTAB, no focal deficits Cardiorespiratory Assessment: persistent AF -> cardioversion (no ROB due to uninterrupted eliquis)
[2018-11-23 14:09] LABS: INR 1.19 (0.83-1.16); PROTIME(PATIENT) 14.6 SEC (12.0-15.0)
[2018-11-23] MEDS ORDERED: LIDOCAINE 1% 5 ML SDV ONE (14:28)
[2018-11-23] MEDS ORDERED: PROPOFOL 200 MG/20 ML VIAL ONE (14:28)
--- NOTE | 2018-11-23 14:30 | PDANEPAE ---
ANE History of Present Illness 73 yo male for CV. ANE Past Medical History - Cardiovascular History Hx Hypertension: Yes Hx Arrhythmias: Yes Hx Chest Pain: No Hx Coronary Artery / Peripheral Vascular Disease: No Hx CHF / Valvular Disease: No Hx Palpitations: Yes Cardiovascular History Comment: Atrial fibrillation - Pulmonary History Hx COPD: No Hx Asthma/Reactive Airway Disease: No Hx Recent Upper Respiratory Infection: No Hx Oxygen in Use at Home: No Hx Sleep Apnea: Yes - Neurologic History Hx Cerebrovascular Accident: No Hx Seizures: No Hx Dementia: No - Endocrine History Hx Diabetes: No - Renal History Hx Renal Disorders: No - Liver History Hx Hepatic Disorders: No - Neurological & Psychiatric Hx Hx Neurological and Psychiatric Disorders: No - Cancer History Hx Cancer: No - Congenital Disorder History Hx Congenital Disorders: No - GI History Hx Gastrointestinal Disorders: No - Chronic Pain History Chronic Pain: Yes (Right hip s/p replacement and revision) ANE Review of Systems Review of Systems: - Systems Cardiac: Reports: other (fatigued with A fib) ANE Patient History - Allergies Allergies/Adverse Reactions: No Known Allergies Allergy (Verified 09/28/18 12:51) - Home Medications Home Medications: Apixaban [Eliquis] 5 mg PO BID 09/28/18 [Last Taken 11/23/18 06:00] Ascorbic Acid [Vitamin C 500 mg (*)] 500 mg PO DAILY 09/28/18 [Last Taken ] Atorvastatin Calcium [Lipitor 10 mg (*)] 10 mg PO DAILY 09/28/18 [Last Taken ] Cholecalciferol Vit D3 [Vitamin D3 (*)] 1,000 units PO DAILY 09/28/18 [Last Taken 11/22/18] Cyanocobalamin [Vitamin B12 (*)] 1,000 mcg PO DAILY 09/28/18 [Last Taken ] Diltiazem HCl [Cartia Xt] 120 mg PO DAILY 09/28/18 [Last Taken 11/22/18] Ferrous Sulfate [Ferrous Sulf 325 MG (*)] 325 mg PO DAILY 09/28/18 [Last Taken 11/22/18] Herbals/Supplements -Info Only 1 ea PO DAILY 09/28/18 [Last Taken 11/22/18] Irbesartan [Avapro 150 mg (*)] 150 mg PO DAILY 09/28/18 [Last Taken 11/22/18] [place]-3 Fatty Acids [Fish Oil 1000 mg (*)] 1,000 mg PO DAILY 09/28/18 [Last Taken 11/22/18] Propafenone HCl Sr [Rythmol Sr 325mg (*)] 325 mg PO Q12 09/28/18 [Last Taken ] Co Q-10 1 cap PO DAILY 11/23/18 [Last Taken 11/22/18] Colchicine 0.6 mg PO DAILY 11/23/18 [Last Taken 11/22/18] Omeprazole 20 mg PO DAILY 11/23/18 [Last Taken 11/22/18] - NPO status NPO Status: no food or drink >8 hours - Anes Hx Anes Hx: no prior problems - Smoking Hx Smoking Status: Never smoked - Family Anes Hx Family Anes Hx: neg - N/A ANE Labs/Vital Signs - Labs Result Diagrams: 11/23/18 13:40 - Vital Signs Vital Signs: reviewed preoperatively; see RN documention for details Height: 172.72 cm Weight: 65.771 kg ANE Physical Exam - Airway Neck exam: FROM Mallampati Score: Class 1 Mouth exam: normal dental/mouth exam - Pulmonary Pulmonary: clear to auscultation - Cardiovascular Cardiovascular: irregularly irregular - ASA Status ASA Status: II ANE Anesthesia Plan Anesthesia Plan: GA with mask Total IV Anesthesia: Yes
--- NOTE | 2018-11-23 14:47 | EPPROC ---
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 He has been on uninterrupted Eliquis since his ablation. Techniques: Following informed consent, the patient was brought to the procedure area in a fasting nonsedated state, in atrial fibrillation rhythm. IV anesthesia was provided by the anesthesiology service. After ensuring adequate sedation, defibrillation pads were applied in an anteroposterior fashion to the chest, and a single 200 joule biphasic R-wave synchronized transcutaneous shock was delivered. This resulted in termination of atrial fibrillation rhythm, with resumption of normal sinus rhythm without a significant sinus pause. The patient tolerated the procedure well. EBL: None Complications: None Assessment: Successful DC cardioversion of atrial fibrillation to sinus rhythm Plan: Discharge to home, continue Eliquis without interruption until 3 months post ablation, follow-up in clinic in 2 months Patient Problems: Problems Problem Status Onset Atrial fibrillation Acute
--- NOTE | 2018-11-28 13:52 | CPEKG ---
Test Reason : OPEN Blood Pressure : / mmHG Vent. Rate : 090 BPM Atrial Rate : 240 BPM P-R Int : 169 ms QRS Dur : 089 ms QT Int : 337 ms P-R-T Axes : 000 048 041 degrees QTc Int : 413 ms Atrial fibrillation Confirmed by James Cerda ([id number]) on 11/28/2018 1:52:13 PM Referred By: Brent Delatorre Confirmed By:James Cerda
--- NOTE | 2018-11-28 13:53 | CPEKG ---
Test Reason : OPEN Blood Pressure : / mmHG Vent. Rate : 078 BPM Atrial Rate : 078 BPM P-R Int : 217 ms QRS Dur : 089 ms QT Int : 370 ms P-R-T Axes : -19 009 021 degrees QTc Int : 422 ms Sinus rhythm Borderline prolonged AL interval Confirmed by James Cerda ([id number]) on 11/28/2018 1:52:57 PM Referred By: Brent Delatorre Confirmed By:James Cerda
== END 2018-11-23 15:55 | disposition home or self-care (01) ==
LOC: FCATH 13:27
PROVIDERS: ATTEND Internal Medicine Cardiovascular Disease
PROC: 5A2204Z Restoration of Cardiac Rhythm, Single (ICD-10-PCS; principal; 2018-11-23)
DX: I48.1 Persistent atrial fibrillation (principal); I25.10 Atherosclerotic heart disease of native coronary artery without angina pectoris; E78.5 Hyperlipidemia, unspecified; I10 Essential (primary) hypertension; Z79.01 Long term (current) use of anticoagulants; Z86.718 Personal history of other venous thrombosis and embolism; Z86.711 Personal history of pulmonary embolism
CPT/HCPCS: J2704

== ENCOUNTER 2018-11-30 09:13 | Emergency (ER) | payer OTHER ==
[2018-11-30 09:35] LABS: PLATELET COUNT 218 10^3/uL (150-400)
[2018-11-30] MEDS ORDERED: NS 1,000 ML IV ONE (09:45)
--- NOTE | 2018-11-30 09:50 | EDPHY ---
H & P Time Seen by Provider: 11/30/18 09:22 HPI/ROS: Chief complaint. Chest pain HPI. Patient is a 73-year-old male with right-sided chest pain that began at about 3:00 a.m. This morning. It is worse with movement and position including bending over and he and his have horses so he crawled through a fence this morning any had pain. It seems to be worse with twisting and bending. He does have increased pain however with breathing. No change with exertion or walking. Denies shortness of breath. No cough or fever. No unusual leg pain or swelling. Patient had a cardioversion for atrial fibrillation on November 23 without preceding ROB. He has been on Eliquis without interruption though he did forget to take at last night. He took it again this morning. No abdominal pain. The patient has had a previous pulmonary embolus. ROS 10 systems were reviewed and negative with the exception of the elements mentioned in the history of present illness Past Medical/Surgical History: Atrial fibrillation with cardioversion is, pulmonary embolus, hip replacement Social History: , nonsmoker, no alcohol Smoking Status: Never smoked Physical Exam: General Appearance: Alert pleasant well-developed male mild distress. Vital signs are stable Eyes: Pupils equal and round no pallor or injection. ENT, Mouth: Mucous membranes are moist. Respiratory: There are no retractions, lungs are clear to auscultation. Cardiovascular: Regular rate and rhythm. Gastrointestinal: Abdomen is soft and nontender, no masses, bowel sounds normal. Neurological: Awake and alert, sensory and motor exams grossly normal. Skin: Warm and dry, no rashes. Musculoskeletal: Neck is supple nontender. Maybe slight tenderness to palpation to the right anterior chest wall. The pain is worse with going from lying to sitting so I could listen to his lungs in the back. Extremities symmetrical, full range of motion. Psychiatric: Patient is oriented X 3, there is no agitation. Constitutional: Initial Vital Signs Temperature (C) 36.5 C 11/30/18 09:14 Heart Rate 86 11/30/18 09:14 Respiratory Rate 16 11/30/18 09:14 Blood Pressure 169/97 H 11/30/18 09:14 O2 Sat (%) 95 11/30/18 09:14 O2 Delivery Mode Room Air Allergies/Adverse Reactions: No Known Allergies Allergy (Verified 09/28/18 12:51) Home Medications: Medication Instructions Recorded Apixaban [Eliquis] 5 mg PO BID 09/28/18 Ascorbic Acid [Vitamin C 500 mg 500 mg PO DAILY 09/28/18 (*)] Atorvastatin Calcium [Lipitor 10 10 mg PO DAILY 09/28/18 mg (*)] Cholecalciferol Vit D3 [Vitamin D3 1,000 units PO DAILY 09/28/18 (*)] Cyanocobalamin [Vitamin B12 (*)] 1,000 mcg PO DAILY 09/28/18 Diltiazem HCl [Cartia Xt] 120 mg PO DAILY 09/28/18 Ferrous Sulfate [Ferrous Sulf 325 325 mg PO DAILY 09/28/18 MG (*)] Herbals/Supplements -Info Only 1 ea PO DAILY 09/28/18 Irbesartan [Avapro 150 mg (*)] 150 mg PO DAILY 09/28/18 [place]-3 Fatty Acids [Fish Oil 1000 1,000 mg PO DAILY 09/28/18 mg (*)] Propafenone HCl Sr [Rythmol Sr 325 mg PO Q12 09/28/18 325mg (*)] Co Q-10 1 cap PO DAILY 11/23/18 Colchicine 0.6 mg PO DAILY 11/23/18 Omeprazole 20 mg PO DAILY 11/23/18 oxyCODONE/APAP 5/325 [Percocet 1 tab PO Q4-6PRN PRN #14 tab 11/30/18 5/325] Medical Decision Making - Diagnostics EKG Interpretation: EKG interpreted by me shows normal sinus rhythm with prolonged SD interval at 238 milliseconds. Normal axis. QRS is otherwise normal there is slight ST elevation in lead 2. Otherwise no other significant ST elevation or depression. No arrhythmia. The rate is [address] elevation appears in previous EKG of 11/23/2018 Imaging Results: Imaging Impressions Chest/Thorax CTA 11/30/18 09:45 Impression: 1. No evidence of pulmonary embolus using CT protocol. 2. Subpleural blebs right middle lobe anteriorly. 3. Anterior wedging of mid to upper thoracic spine segments with extensive associated accentuation of the anterior kyphosis. This appears to be chronic. 4. Mild prominence of the pulmonary arterial system centrally. Consider pulmonary hypertension. 5. Atherosclerotic calcification of the proximal to mid LAD and mid RCA Findings discussed with Willie Gallardo M.D. at 11:21 hour, 11/30/2018. CT chest angiogram shows no evidence of pulmonary embolus, pneumothorax, pneumonia Procedures: IV normal saline, monitor ED Course/Re-evaluation: Re-evaluation 11:45 a.m.. Patient is stable. Patient and I discussed imaging and lab results. We discussed treatment plan including criteria for return and importance of follow-up and further evaluation. The patient has no pain at rest and only pain when he tries to set up in the right anterior chest wall Differential Diagnosis: Patient has had previous pulmonary embolus. I considered PE. I considered acute coronary syndrome. However the patient's pain is clearly reproducible and caused by movement including bending over and trying to go from lying to sitting. I think that this is musculoskeletal in etiology - Data Points Laboratory Results: Laboratory Results 11/30/18 09:20 11/30/18 09:20 11/30/18 11/30/18 11/30/18 09:25 09:20 09:20 WBC 8.05 10^3/uL 10^3/uL (3.80-9.50) RBC 4.10 10^6/uL L 10^6/uL (4.40-6.38) Hgb 13.7 g/dL g/dL (13.7-17.5) Hct 40.8 % % (40.0-51.0) MCV 99.5 fL fL (81.5-99.8) MCH 33.4 pg pg (27.9-34.1) MCHC 33.6 g/dL g/dL (32.4-36.7) RDW 12.5 % % (11.5-15.2) Plt Count 218 10^3/uL 10^3/uL (150-400) MPV 9.1 fL fL (8.7-11.7) Neut % (Auto) 61.2 % % (39.3-74.2) Lymph % (Auto) 22.0 % % (15.0-45.0) [place] % (Auto) 14.2 % H % (4.5-13.0) Eos % (Auto) 1.4 % % (0.6-7.6) Baso % (Auto) 0.6 % % (0.3-1.7) Nucleat RBC Rel Count 0.0 % % (0.0-0.2) Absolute Neuts (auto) 4.93 10^3/uL 10^3/uL (1.70-6.50) Absolute Lymphs (auto) 1.77 10^3/uL 10^3/uL (1.00-3.00) Absolute Monos (auto) 1.14 10^3/uL H 10^3/uL (0.30-0.80) Absolute Eos (auto) 0.11 10^3/uL 10^3/uL (0.03-0.40) Absolute Basos (auto) 0.05 10^3/uL 10^3/uL (0.02-0.10) Absolute Nucleated RBC 0.00 10^3/uL 10^3/uL (0-0.01) Immature Gran % 0.6 % % (0.0-1.1) Immature Gran # 0.05 10^3/uL 10^3/uL (0.00-0.10) Sodium 138 mEq/L mEq/L (135-145) Potassium 4.4 mEq/L mEq/L (3.5-5.2) Chloride 104 mEq/L mEq/L (97-110) Carbon Dioxide 21 mEq/l L mEq/l (22-31) Anion Gap 13 mEq/L mEq/L (6-14) BUN 18 mg/dL mg/dL (7-23) Creatinine 0.7 mg/dL mg/dL (0.7-1.3) Estimated GFR > 60 Glucose 71 mg/dL mg/dL (70-100) Calcium 9.4 mg/dL mg/dL (8.5-10.4) POC Troponin I 0.01 ng/mL ng/mL (0.00-0.08) NT-Pro-B Natriuret Pep 97 pg/mL pg/mL (0-450) Medications Given: Discontinued Medications Sodium Chloride (Ns) 1,000 mls @ 0 mls/hr IV ONCE ONE; Wide Open PRN Reason: Protocol Stop: 11/30/18 09:46 Last Admin: 11/30/18 09:52 Dose: 1,000 mls Point of Care Test Results: Chemistry 11/30/18 09:25 POC Troponin I 0.01 ng/mL ng/mL (0.00-0.08) Departure - Departure Disposition: Home, Routine, Self-Care Clinical Impression: Chest wall pain Condition: Good Instructions: Chest Wall Pain (ED) Additional Instructions: Heat to sore area of your chest Tylenol or Percocet as needed for pain Activity as tolerated Return for worsening pain, fever, trouble breathing Recheck in 2 days if not improved Referrals: Mandeep Hale MD [Primary Care Provider] - 1 day, if not improved Prescriptions: oxyCODONE/APAP 5/325 [Percocet 5/325] 1 tab PO Q4-6PRN PRN #14 tab PRN Reason: Pain, Moderate
[2018-11-30] MEDS ORDERED: IOPAMIDOL (ISOVUE-300) 100 ML BTL ONE (10:01)
[2018-11-30] MEDS ORDERED: IOPAMIDOL (ISOVUE 370) 100 ML BTL IV ONE (10:43)
[2018-11-30 12:13] VITALS: BP 144/89
--- NOTE | 2018-11-30 14:49 | CPEKG ---
Test Reason : OPEN Blood Pressure : / mmHG Vent. Rate : 076 BPM Atrial Rate : 077 BPM P-R Int : 238 ms QRS Dur : 085 ms QT Int : 365 ms P-R-T Axes : -43 058 043 degrees QTc Int : 411 ms Sinus rhythm Prolonged NE interval Low voltage, extremity leads Confirmed by Willie Gallardo ([id number]) on 11/30/2018 2:48:43 PM Referred By: PHYSICIAN ED Confirmed By:Willie Gallardo
== END 2018-11-30 12:12 | disposition home or self-care (01) ==
DX: R07.89 Other chest pain (principal); E86.9 Volume depletion, unspecified; I48.91 Unspecified atrial fibrillation; Z79.01 Long term (current) use of anticoagulants
CPT/HCPCS: 71275; 93005; 96360; 99285; Q9967; 84484-ER